=== PATIENT | male | born 1945 | race Caucasian/White ===

== ENCOUNTER 2017-11-15 15:00 | Inpatient (IN) | payer MEDICARE, OTHER ==
[2017-11-15] VITALS (10 sets, daily range): BP systolic 103–149; BP diastolic 73–99; BMI 29.2
[~2017-11-15] VITALS: Ht 193 cm; Wt 115.0 kg
--- NOTE | ~2017-11-15 | CN ---
PATIENT NAME:CINDY CHONG MEDICAL RECORD: [id number] : 41 LOCATION:[facility] D.2126 ADMIT DATE: 11/15/17 ACCOUNT: [id number] CONSULTING PHYSICIAN: BALTA PATEL MD REFERRING PHYSICIAN: SARAH KEARNEY MD DATE OF CONSULTATION: 11/16/2017 HISTORY OF PRESENT ILLNESS: Pleasant 72-year-old gentleman with a known history of coronary artery disease, obstructive pulmonary disease, transferred from outside facility for higher level of care. He is found to be in atrial fibrillation with RVR. He received diltiazem IV at outside hospital and started on an amiodarone drip. Actually by his report, he is feeling better with less dyspnea. PAST MEDICAL HISTORY: Includes: 1. History of obstructive pulmonary disease. 2. Coronary artery disease. 3. Dyslipidemia. 4. Neuropathy. 5. Diabetes mellitus. MEDICATIONS: Include Januvia 25 mg p.o. every day, insulin per scale, Lasix 20 every day, tramadol 50 mg q.8 p.r.n., Ativan 0.5 mg every day, Neurontin 400 t.i.d., aspirin 81 every day, pravastatin 40 every day, metoprolol 25 b.i.d., amiodarone 200 every day, Plavix 75 every day. ALLERGIES: MORPHINE. SOCIAL HISTORY: He lives near [place] where he was born and raised. He does smoke. He is able to take care of all his ADLs. REVIEW OF SYSTEMS: The patient reports easy bruising but reports no swollen glands. The patient reports no fever, no night sweats, no significant weight gain, no significant weight loss. No significant exercise tolerance. The patient reports no dry eyes, no irritation, no vision change. Patient reports no difficulty hearing and no ear pain. Patient reports no frequent nose bleeds or nose and sinus problems. Patient reports on arm pain on exertion. No shortness of breath while lying down. No history of heart murmur. Patient reports no cough, no wheezing or coughing up blood. Patient reports no abdominal pain, no vomiting. Normal appetite. No diarrhea and not vomiting blood. No nausea and no constipation. Patient reports no incontinence. No difficulty urinating. No hematuria. No increased frequency. Patient reports no muscle aches. No weakness, no arthralgias, no back pain. No swelling of the extremities. Patient reports no abnormal mole, no jaundice, no rashes. Reports no loss of consciousness. No weakness and no numbness. No seizures, dizziness, or headaches. The patient reports no depression, no sleep disturbance, feeling safe in a relationship and no alcohol abuse. Patient reports on fatigue. Reports no runny nose or sinus pressure. No itching, no hives, and no frequent sneezing. PHYSICAL EXAMINATION: GENERAL: Pleasant gentleman in no acute distress. VITAL SIGNS: Pulse currently 116 and irregular, blood pressure 136/86. HEENT: Normocephalic, atraumatic. NECK: No bruits noted. CONSULT REPORT [id number] CASTILLOCINDY W HEART: Irregular. Rate is somewhat elevated, II/ systolic ejection murmur. LUNGS: Expiratory wheezes. ABDOMEN: Soft, nontender. EXTREMITIES: Pulses 1+. There is no edema. IMPRESSION: Atrial fibrillation with rapid ventricular response. At this point in time, we will begin oral load with digoxin and continue low-dose amiodarone. We will check echocardiographic study. Further recommendations based on clinical course. TRANSINT:[id number] Voice Confirmation ID: [id number] DOCUMENT ID: [id number] BALTA PATEL MD at 0823 CC: [id number] DICTATION DATE: 11/16/17 1130 REHABILITATION SUPERVISOR: 11/16/17 1428 ADM IN [place] [id number] [place] [id number]
--- NOTE | ~2017-11-15 | EC ---
PATIENT:CINDY CHONG DATE OF SERVICE: 11/15/17 SEX: M MEDICAL RECORD: [id number] DATE OF : 41 LOCATION:D.M2 D.212 AGE OF PATIENT: 72 ADMISSION DATE: 11/15/17 REFERRING PHYSICIAN: INTERPRETING PHYSICIAN: BALTA PATEL MD ECHOCARDIOGRAM REPORT ECHO CHARGES 5 ECHO LIMITED CLINICAL DIAGNOSIS: CHF HX OF CAD/STENTS ECHOCARDIOGRAPHIC MEASUREMENTS (adult normal given) AC root (d.<3.7cm) cm LV Septum d (<1.2 cm> 1.8 cm Valve Excursion cm LV Septum (systole) 2.0 cm Left Atria (s.<4.0cm> 5.1 cm LVPW d(<1.2cm) 1.8 cm RV (d.<2.3cm) 3.3 cm LVPW (sytole) 2.0 cm LV diastole(<5.6CM) 4.6 cm MV E-F(>70mm/sec) cm LV systole 3.0 cm LVOT Diameter 2.3 cm MV exc.(>10mm) cm Est.ejection fraction (50-75%) % Pericardial Effusion N DOPPLER: LVIT cm/sec A cm/sec E cm/sec LA cm/sec RVSP mmHg LVOT cm/sec AOP1/2T m/s Asc. Ao cm/sec RVOT cm/sec RA cm/sec PA cm/sec AV Gradient Peak mmHg AV Mean mmHg AV Area cm MV Gradient Peak mmHg MV Mean mmHg MV Area cm COMMENTS: Over Hauler Helper: Cassie MCFARLAND Project Management Instructor: 3 Dr. Douglas TAPE# PACS DATE OF SERVICE: 11/17/2017 Adequate 2D echo, color flow, spectral Doppler, and M-Mode. LVH is present. LV internal dimensions are normal. Difficult to fully assess focal wall motion secondary to underlying atrial fibrillation and variable R-R intervals. Overall LV function appeared preserved at 50% or better. Aortic valve sclerosis without stenosis by Doppler interrogation. Left atrium is grossly dilated at 5.1 cm. Mitral valve shows no prolapse. Mild MR. Right-sided chamber is grossly normal. Mild TR. ECHOCARDIOGRAM REPORT [id number] CINDY CHONG TRANSINT:[id number] Voice Confirmation ID: [id number] DOCUMENT ID: [id number] BALTA PATEL MD at 0823 CC: [id number] DICTATION DATE: 11/17/17 1046 HYDRAMATIC SPECIALIST: 11/17/17 1239 ADM IN [place] [id number] [place] [id number]
[2017-11-15] MEDS ORDERED: ADVAIR 250/501 DISK INH (17:31)
[2017-11-15] MEDS ORDERED: PACERONE200 MG PO (17:32)
[2017-11-15] MEDS ORDERED: BAYER CHEWABLE81 MG PO (17:34)
[2017-11-15] MEDS ORDERED: ATIVAN0.5 MG PO (17:36)
[2017-11-15] MEDS ORDERED: FERROUS SULFAT325 MG PO (17:37)
[2017-11-15] MEDS ORDERED: COLACE100 MG PO (17:37)
[2017-11-15] MEDS ORDERED: FLUTICASONE PRO16 GM NASAL (17:39)
[2017-11-15] MEDS ORDERED: NEURONTIN 400400 MG PO (17:40)
[2017-11-15] MEDS ORDERED: HUMULIN R100 U/ML SC (17:41)
[2017-11-15] MEDS ORDERED: LANTUS SOL100 UNIT/1 SC (17:42)
[2017-11-15] MEDS ORDERED: ATROVENT 0.02%2.5 ML UPD (17:44)
[2017-11-15] MEDS ORDERED: JANUVIA25 MG PO (17:45)
[2017-11-15] MEDS ORDERED: FUROSEMIDE20 MG PO (17:48)
[2017-11-15] MEDS ORDERED: METOPROLOL TART25 MG PO (17:51)
[2017-11-15] MEDS ORDERED: MUCINEX600 MG PO (17:52)
[2017-11-15] MEDS ORDERED: PLAVIX75 MG PO (17:53)
[2017-11-15] MEDS ORDERED: POTASSIUM CHLO10 ME1 PO (17:55)
[2017-11-15] MEDS ORDERED: PRAVACHOL40 MG PO (17:57)
[2017-11-15] MEDS ORDERED: ULTRAM50 MG PO (17:59)
[2017-11-15 18:45] LABS: HEMATOCRIT 38.6 % (42.0-54.0); HEMOGLOBIN 12.2 g/dL (13.5-17.5); MCH 30.3 pg (26.0-34.0); MCHC 31.6 g/dL (31.0-37.0); MEAN PLATELET VOLUME 8.9 fL (7.4-10.4); PLATELET COUNT 267 10x3/uL (130-400); RBC 4.02 10x6/uL (4.20-6.10); RDW 15.2 % (11.5-14.5); WBC 10.4 10x3/uL (4.8-10.8)
[2017-11-15 20:00] LABS: ALBUMIN 3.2 g/dL (3.4-5.0); ANION GAP 12.7 mmol/L (8-16); BILIRUBIN - TOTAL 0.38 mg/dL (0.2-1.3); CALCIUM 8.7 mg/dL (8.5-10.1); CARBON DIOXIDE 30.6 mmol/L (21.0-32.0); CREATININE - SERUM 1.5 mg/dL (0.6-1.3); POTASSIUM - SERUM 5.3 mmol/L (3.5-5.1); PROTEIN - SERUM 7.4 g/dL (6.4-8.2)
[2017-11-15 20:40] LABS: LYMPHOCYTES 15 % (15-50); NEUTROPHILS 84 % (40-80); PLATELET ESTIMATE NORMAL
[2017-11-16] VITALS (15 sets, daily range): BP systolic 110–148; BP diastolic 71–95; BMI 31.2
[2017-11-16 07:40] LABS: BASOPHILS 0 % (0-2); EOSINOPHILS 0 % (0-7); HEMATOCRIT 37.1 % (42.0-54.0); HEMOGLOBIN 11.7 g/dL (13.5-17.5); IMMATURE GRANULOCYTES 0.5 % (0-5); LYMPHOCYTES 5.2 % (15-50); MCH 29.6 pg (26.0-34.0); MCHC 31.5 g/dL (31.0-37.0); MEAN PLATELET VOLUME 8.8 fL (7.4-10.4); MONOCYTES 1.2 % (2-11); NEUTROPHILS 93.1 % (40-80); PLATELET COUNT 264 10x3/uL (130-400); RBC 3.95 10x6/uL (4.20-6.10); RDW 14.8 % (11.5-14.5)
[2017-11-16 07:41] LABS: MCV 93.9 fL (80.0-100.0); WBC 7.7 10x3/uL (4.8-10.8)
[2017-11-16 07:57] LABS: ALBUMIN 2.8 g/dL (3.4-5.0); ANION GAP 15.8 mmol/L (8-16); BILIRUBIN - TOTAL 0.32 mg/dL (0.2-1.3); CALCIUM 8.1 mg/dL (8.5-10.1); CARBON DIOXIDE 26.8 mmol/L (21.0-32.0); CREATININE - SERUM 1.5 mg/dL (0.6-1.3); POTASSIUM - SERUM 4.6 mmol/L (3.5-5.1); PROTEIN - SERUM 7.1 g/dL (6.4-8.2)
[2017-11-16 14:43] LABS: BASOPHILS 0 % (0-2); EOSINOPHILS 0 % (0-7); HEMATOCRIT 36.6 % (42.0-54.0); IMMATURE GRANULOCYTES 0.4 % (0-5); LYMPHOCYTES 4.9 % (15-50); MCH 30.5 pg (26.0-34.0); MCHC 32.8 g/dL (31.0-37.0); MCV 92.9 fL (80.0-100.0); MEAN PLATELET VOLUME 8.9 fL (7.4-10.4); MONOCYTES 3.3 % (2-11); NEUTROPHILS 91.4 % (40-80); PLATELET COUNT 264 10x3/uL (130-400); RBC 3.94 10x6/uL (4.20-6.10); RDW 14.7 % (11.5-14.5); WBC 8.5 10x3/uL (4.8-10.8)
[2017-11-16 14:57] LABS: ANION GAP 14.1 mmol/L (8-16); CALCIUM 8.8 mg/dL (8.5-10.1); CREATININE - SERUM 1.7 mg/dL (0.6-1.3); POTASSIUM - SERUM 4.1 mmol/L (3.5-5.1)
[2017-11-17] VITALS (9 sets, daily range): BP systolic 116–150; BP diastolic 64–87
[2017-11-17 05:18] LABS: BASOPHILS 0.1 % (0-2); EOSINOPHILS 0 % (0-7); HEMATOCRIT 36.7 % (42.0-54.0); HEMOGLOBIN 11.8 g/dL (13.5-17.5); IMMATURE GRANULOCYTES 0.5 % (0-5); LYMPHOCYTES 3.5 % (15-50); MCH 29.8 pg (26.0-34.0); MCHC 32.2 g/dL (31.0-37.0); MCV 92.7 fL (80.0-100.0); MONOCYTES 5.8 % (2-11); NEUTROPHILS 90.1 % (40-80); PLATELET COUNT 285 10x3/uL (130-400); RBC 3.96 10x6/uL (4.20-6.10); RDW 14.8 % (11.5-14.5); WBC 12.2 10x3/uL (4.8-10.8)
[2017-11-17 05:48] LABS: ANION GAP 15.7 mmol/L (8-16); CALCIUM 8.5 mg/dL (8.5-10.1); CARBON DIOXIDE 27.4 mmol/L (21.0-32.0); CREATININE - SERUM 1.6 mg/dL (0.6-1.3); POTASSIUM - SERUM 4.1 mmol/L (3.5-5.1); VANCOMYCIN - TROUGH 12.3 ug/mL (10.0-20.0)
[2017-11-17 06:10] LABS: AMORPHOUS SEDIMENT <1+ /lpf (NONE SEEN); APPEARANCE HAZY (CLEAR); BACTERIA NONE SEEN /hpf (NONE SEEN); BILIRUBIN NEGATIVE (NEGATIVE); COLOR YELLOW (YELLOW); EPITHELIAL CELLS NSEEN /hpf (0-5); GLUCOSE 500 mg/dL (NEGATIVE); KETONE NEGATIVE (NEGATIVE); NITRITE NEGATIVE (NEGATIVE); PROTEIN 1+ mg/dL (NEGATIVE); RED CELLS - URINE >50 /hpf (0-5); SPECIFIC GRAVITY 1.015 (1.005-1.020); UROBILINOGEN NORMAL (NORMAL)
[2017-11-18 03:00] VITALS: BP 100/69
[2017-11-18 07:00] VITALS: BP 154/100
[2017-11-18 11:00] VITALS: BP 155/98
[2017-11-18 14:27] VITALS: Ht 193 cm; Wt 115.0 kg
[2017-11-18 15:00] VITALS: BP 155/93
[2017-11-18 19:00] VITALS: BP 172/99
[2017-11-19 04:00] VITALS: BP 144/92
[2017-11-19 06:11] LABS: BASOPHILS 0.1 % (0-2); EOSINOPHILS 0 % (0-7); HEMATOCRIT 39.9 % (42.0-54.0); HEMOGLOBIN 12.7 g/dL (13.5-17.5); MCH 29.7 pg (26.0-34.0); MCHC 31.8 g/dL (31.0-37.0); MCV 93.2 fL (80.0-100.0); MEAN PLATELET VOLUME 8.8 fL (7.4-10.4); NEUTROPHILS 83.9 % (40-80); PLATELET COUNT 281 10x3/uL (130-400); RBC 4.28 10x6/uL (4.20-6.10); RDW 14.7 % (11.5-14.5)
[2017-11-19 06:35] LABS: ANION GAP 11.3 mmol/L (8-16); CALCIUM 8.2 mg/dL (8.5-10.1); CARBON DIOXIDE 30.2 mmol/L (21.0-32.0); CREATININE - SERUM 1.3 mg/dL (0.6-1.3); POTASSIUM - SERUM 4.5 mmol/L (3.5-5.1)
[2017-11-19 08:20] LABS: IMMUNOGLOBULIN A 239 mg/dL (61-437); IMMUNOGLOBULIN G 1201 mg/dL (700-1600)
[2017-11-19 08:51] VITALS: BP 147/96
[2017-11-19 11:29] VITALS: BP 183/110
[2017-11-19 15:18] VITALS: BP 185/98
[2017-11-19 22:25] VITALS: BP 162/87
[2017-11-20 01:27] VITALS: BP 135/79
[2017-11-20 06:27] LABS: BASOPHILS 0.1 % (0-2); EOSINOPHILS 0 % (0-7); HEMATOCRIT 40.2 % (42.0-54.0); HEMOGLOBIN 12.8 g/dL (13.5-17.5); IMMATURE GRANULOCYTES 3.1 % (0-5); LYMPHOCYTES 7.1 % (15-50); MCH 29.4 pg (26.0-34.0); MCHC 31.8 g/dL (31.0-37.0); MCV 92.4 fL (80.0-100.0); MEAN PLATELET VOLUME 8.6 fL (7.4-10.4); MONOCYTES 4.6 % (2-11); NEUTROPHILS 85.1 % (40-80); PLATELET COUNT 301 10x3/uL (130-400); RBC 4.35 10x6/uL (4.20-6.10); RDW 14.4 % (11.5-14.5); WBC 9.3 10x3/uL (4.8-10.8)
[2017-11-20 06:28] VITALS: BP 134/78
[2017-11-20 07:07] LABS: ANION GAP 9.3 mmol/L (8-16); CALCIUM 8.1 mg/dL (8.5-10.1); CARBON DIOXIDE 32.2 mmol/L (21.0-32.0); CREATININE - SERUM 1.2 mg/dL (0.6-1.3); POTASSIUM - SERUM 4.5 mmol/L (3.5-5.1)
[2017-11-20 08:12] VITALS: BP 127/79
[2017-11-20 12:15] VITALS: BP 148/79
[2017-11-20 16:42] VITALS: BP 151/80
[2017-11-20 20:00] VITALS: BP 166/80
[2017-11-21] VITALS: BP 156/83
[2017-11-21 04:00] VITALS: BP 160/88
[2017-11-21 05:40] LABS: BASOPHILS 0.2 % (0-2); EOSINOPHILS 0.1 % (0-7); HEMATOCRIT 41.1 % (42.0-54.0); IMMATURE GRANULOCYTES 2.7 % (0-5); LYMPHOCYTES 7.6 % (15-50); MCH 29.3 pg (26.0-34.0); MCHC 31.6 g/dL (31.0-37.0); MCV 92.8 fL (80.0-100.0); MEAN PLATELET VOLUME 9.2 fL (7.4-10.4); MONOCYTES 6.4 % (2-11); PLATELET COUNT 283 10x3/uL (130-400); RBC 4.43 10x6/uL (4.20-6.10); RDW 14.6 % (11.5-14.5)
[2017-11-21 06:00] LABS: WBC 12.9 10x3/uL (4.8-10.8)
[2017-11-21 06:09] LABS: ANION GAP 11.2 mmol/L (8-16); CALCIUM 7.9 mg/dL (8.5-10.1); CREATININE - SERUM 1.4 mg/dL (0.6-1.3); POTASSIUM - SERUM 4.2 mmol/L (3.5-5.1)
[2017-11-21 08:35] VITALS: BP 125/74
[2017-11-21 12:38] VITALS: BP 146/64
[2017-11-21 16:01] VITALS: BP 130/80
[2017-11-21 21:38] VITALS: BP 140/77
[2017-11-22 01:44] VITALS: BP 135/75
[2017-11-22 05:02] LABS: BASOPHILS 0.1 % (0-2); EOSINOPHILS 0 % (0-7); HEMATOCRIT 38.6 % (42.0-54.0); HEMOGLOBIN 12.4 g/dL (13.5-17.5); IMMATURE GRANULOCYTES 2.2 % (0-5); LYMPHOCYTES 8.2 % (15-50); MCH 29.5 pg (26.0-34.0); MCHC 32.1 g/dL (31.0-37.0); MCV 91.7 fL (80.0-100.0); MEAN PLATELET VOLUME 8.9 fL (7.4-10.4); MONOCYTES 6.2 % (2-11); NEUTROPHILS 83.3 % (40-80); PLATELET COUNT 277 10x3/uL (130-400); RBC 4.21 10x6/uL (4.20-6.10); RDW 14.6 % (11.5-14.5); WBC 11.3 10x3/uL (4.8-10.8)
[2017-11-22 05:13] LABS: ANION GAP 7.4 mmol/L (8-16); CALCIUM 7.9 mg/dL (8.5-10.1); CARBON DIOXIDE 32.9 mmol/L (21.0-32.0); CREATININE - SERUM 1.2 mg/dL (0.6-1.3); POTASSIUM - SERUM 4.3 mmol/L (3.5-5.1)
[2017-11-22 05:40] VITALS: BP 131/70
[2017-11-22 12:02] VITALS: BP 164/70
[2017-11-22] MEDS ORDERED: ELIQUIS5 MG PO (13:09)
[2017-11-22] MEDS ORDERED: CARDIZEM60 MG PO (13:10)
[2017-11-22] MEDS ORDERED: LANOXIN125 MCG PO (13:10)
[2017-11-22] MEDS ORDERED: SINGULAIR10 MG PO (13:11)
[2017-11-22] MEDS ORDERED: MUCINEX DM ER1 EAC1 PO (13:11)
[2017-11-22] MEDS ORDERED: PREDNISONE10 MG PO (13:12)
[2017-11-22 21:08] LABS: IMMUNOGLOBULIN E >5000 IU/mL (0-100)
== END 2017-11-22 16:13 | DRG 177 ==
LOC: D.ICU 15:00 → D.M2 15:00
PROVIDERS: Internal Medicine Nephrology; Internal Medicine Pulmonary Disease
PROC: 5A09357 Assistance with Respiratory Ventilation, Less than 24 Consecutive Hours, Continuous Positive Airway Pressure (ICD-10-PCS; principal; 2017-11-15)
DX: J69.0 Pneumonitis due to inhalation of food and vomit (principal); I50.23 Acute on chronic systolic (congestive) heart failure; J96.22 Acute and chronic respiratory failure with hypercapnia; J96.21 Acute and chronic respiratory failure with hypoxia; I13.0 Hypertensive heart and chronic kidney disease with heart failure and stage 1 through stage 4 chronic kidney disease, or unspecified chronic kidney disease; N17.9 Acute kidney failure, unspecified; J98.11 Atelectasis; J44.1 Chronic obstructive pulmonary disease with (acute) exacerbation; E87.1 Hypo-osmolality and hyponatremia; N18.3 Chronic kidney disease, stage 3 (moderate); E11.22 Type 2 diabetes mellitus with diabetic chronic kidney disease; I25.10 Atherosclerotic heart disease of native coronary artery without angina pectoris; E78.5 Hyperlipidemia, unspecified; I48.91 Unspecified atrial fibrillation; D64.9 Anemia, unspecified; K21.9 Gastro-esophageal reflux disease without esophagitis; R25.1 Tremor, unspecified; F41.9 Anxiety disorder, unspecified; F32.9 Major depressive disorder, single episode, unspecified; Z72.0 Tobacco use; G47.33 Obstructive sleep apnea (adult) (pediatric)